=== PATIENT | male | born 1940 | race Caucasian/White ===

== ENCOUNTER → 2020-03-24 10:41 | Outpatient (BNVA) | payer MEDICARE, SELFPAY | PROVIDERS: PCP Internal Medicine; Visit Provider Hospitalist | DX: J41.0 Simple chronic bronchitis (principal); R91.8 Other nonspecific abnormal finding of lung field; G47.33 Obstructive sleep apnea (adult) (pediatric) | CPT/HCPCS: 99212 ==

== ENCOUNTER → 2020-06-13 10:02 | Outpatient (BNVA) | payer MEDICARE, SELFPAY | PROVIDERS: PCP Internal Medicine; Visit Provider Hospitalist | DX: G47.33 Obstructive sleep apnea (adult) (pediatric) (principal); R91.8 Other nonspecific abnormal finding of lung field; J41.0 Simple chronic bronchitis | CPT/HCPCS: 99212 ==

== ENCOUNTER 2020-11-09 10:37 | Outpatient (REF) | payer MEDICARE, SELFPAY ==
--- NOTE | ~2020-11-09 | CT_ITS ---
EXAMINATION: CT CHEST WITHOUT CONTRAST CLINICAL INFORMATION: Follow-up pulmonary nodules COMPARISON: Previous chest CT scans most recent September 2019 TECHNIQUE: Multidetector volumetric CT imaging of the chest was done. Axial MIP volume rendering provided. Sagittal and coronal reformatted images were obtained. This CT examination was performed using dose optimization techniques as appropriate, variously including the following: *Automated exposure control *Adjustment of mA and/or kV according to patient size (this includes techniques or standardized protocols for targeted exams where dose is matched to indication/reason for exam; i.e. extremities or head) *Use of iterative reconstruction technique DLP: 239 mGy-cm FINDINGS: LUNGS: The small calcified and noncalcified nodules are stable. Largest pulmonary nodule is a 3 mm calcified right upper lobe nodule adjacent to the major fissure axial image 184 series 7. No new pulmonary nodule is seen. MEDIASTINUM: There is coronary artery calcification. The heart is slightly enlarged. The mediastinum is otherwise normal. PLEURA: There is no pleural effusion. No pleural mass or thickening. AXILLA: No lymphadenopathy. UPPER ABDOMEN: The gallbladder has been removed. OSSEOUS STRUCTURES: There are degenerative changes of the spine. CT/CT chest wo con IMPRESSION: Stable small calcified and noncalcified pulmonary nodules. Enlarged heart and coronary artery calcification.
== END 2020-11-09 10:38 | disposition home or self-care (01) ==
LOC: HO.CT 10:37
PROVIDERS: PCP Internal Medicine; Visit Provider Hospitalist
DX: R91.8 Other nonspecific abnormal finding of lung field (principal)
CPT/HCPCS: 71250

== ENCOUNTER → 2021-01-11 10:21 | Outpatient (BNVA) | payer MEDICARE, SELFPAY | PROVIDERS: PCP Internal Medicine; Visit Provider Hospitalist | DX: G47.33 Obstructive sleep apnea (adult) (pediatric) (principal); J41.0 Simple chronic bronchitis; R91.8 Other nonspecific abnormal finding of lung field | CPT/HCPCS: 99212 ==

== ENCOUNTER → 2021-07-24 12:36 | Outpatient (BNVA) | payer MEDICARE, SELFPAY | PROVIDERS: PCP Internal Medicine; Visit Provider Hospitalist | DX: G47.33 Obstructive sleep apnea (adult) (pediatric) (principal); R91.8 Other nonspecific abnormal finding of lung field; J41.0 Simple chronic bronchitis | CPT/HCPCS: 94618; 99212 ==

== ENCOUNTER 2021-09-28 12:39 | Outpatient (REF) | payer MEDICARE, SELFPAY ==
--- NOTE | ~2021-09-28 | CT_ITS ---
EXAMINATION: CT CHEST WITHOUT CONTRAST CLINICAL INFORMATION: Follow-up lung nodules COMPARISON: Previous chest CT most recent November 2020 TECHNIQUE: Multidetector volumetric CT imaging of the chest was done. Axial MIP volume rendering provided. Sagittal and coronal reformatted images were obtained. This CT examination was performed using dose optimization techniques as appropriate, variously including the following: *Automated exposure control *Adjustment of mA and/or kV according to patient size (this includes techniques or standardized protocols for targeted exams where dose is matched to indication/reason for exam; i.e. extremities or head) *Use of iterative reconstruction technique DLP: 311 mGy-cm FINDINGS: LUNGS: The small pulmonary nodules are stable. Largest pulmonary nodule is a 3 mm peripheral or subpleural right upper lobe nodule adjacent to the major fissure axial image 156 series 7. No new pulmonary nodule is seen. MEDIASTINUM: There is coronary artery calcification. The mediastinum is otherwise normal. PLEURA: There is no pleural effusion. No pleural mass or thickening. AXILLA: No lymphadenopathy. UPPER ABDOMEN: The gallbladder has been removed. OSSEOUS STRUCTURES: There are degenerative changes of the spine. CT/CT chest wo con IMPRESSION: Stable pulmonary nodules. Fleischner guidelines were followed.
== END 2021-09-28 12:40 | disposition home or self-care (01) ==
LOC: HO.CT 12:39
PROVIDERS: PCP Internal Medicine; Visit Provider Hospitalist
DX: R91.8 Other nonspecific abnormal finding of lung field (principal)
CPT/HCPCS: 71250

== ENCOUNTER → 2021-11-13 12:48 | Outpatient (BNVA) | payer MEDICARE, SELFPAY | PROVIDERS: PCP Internal Medicine; Visit Provider Hospitalist | DX: J41.0 Simple chronic bronchitis (principal); G47.33 Obstructive sleep apnea (adult) (pediatric); R91.8 Other nonspecific abnormal finding of lung field; I42.9 Cardiomyopathy, unspecified; R06.00 Dyspnea, unspecified | CPT/HCPCS: 99212 ==

== ENCOUNTER 2021-11-24 13:36 | Outpatient (REF) | payer MEDICARE, SELFPAY ==
--- NOTE | 2021-11-24 17:33 | PFT_ITS ---
INDICATION: COPD. POST TEST COMMENTS: The patient was able to meet ATS standards for pre-FVC maneuvers. Best effort taken. SPIROMETRY: FEV1 to FVC 81% with an FEV1 of 2.11 L, which is 62% predicted and an FVC of 2.62 L, which is 55% predicted. No significant response to bronchodilators noted. Maximum voluntary ventilation only 38% predicted. LUNG VOLUMES: Total lung capacity 55% predicted with an expiratory reserve volume of 35% predicted. DIFFUSION CAPACITY: DLCO is a 58% predicted. COMPARISONS: None available. INTERPRETATION: No obstructive ventilatory defect. No significant response to bronchodilators noted. The patient does have a severe decrease in maximum voluntary ventilation, which could be secondary to deconditioning in addition to neuromuscular conditions. Lung volumes do also demonstrate a moderate restrictive ventilatory defect. In addition to that, does have a moderate diffusion impairment. The diffusion impairment does not completely correct when correcting for the alveolar volume. Clinical correlation warranted. MD GILA Crowder/MUNA / [id number]
== END 2021-11-24 13:37 | disposition home or self-care (01) ==
LOC: HO.RESP 13:36
PROVIDERS: PCP Internal Medicine; Visit Provider Hospitalist
DX: J41.0 Simple chronic bronchitis (principal)
CPT/HCPCS: 94060; 94727; 94729

== ENCOUNTER → 2021-12-01 12:47 | Outpatient (BNVA) | payer MEDICARE, SELFPAY | PROVIDERS: PCP Internal Medicine; Visit Provider Hospitalist | DX: G47.33 Obstructive sleep apnea (adult) (pediatric) (principal); R91.8 Other nonspecific abnormal finding of lung field; J41.0 Simple chronic bronchitis; I42.9 Cardiomyopathy, unspecified; R06.00 Dyspnea, unspecified; J98.4 Other disorders of lung; R26.2 Difficulty in walking, not elsewhere classified | CPT/HCPCS: 99212 ==